=== PATIENT | female | born 1950 | race Caucasian/White ===

== ENCOUNTER 2017-11-05 09:08 | Inpatient (IN) | payer SELFPAY, OTHER ==
[2017-11-05] MEDS ORDERED: ONDANSETRON 4 MG INJ (11:44)
[2017-11-05] MEDS: morphine 10 MG INJ IV ×2 (11:47→13:56)
[2017-11-05 12:02] LABS: ABNORMAL IP MESSAGE 1; HEMOGLOBIN 10.6 g/dl (12.0-16.0); MEAN CORPUSCULAR HEMOGLOBIN 23.2 pg (29.0-33.0); MEAN CORPUSCULAR HGB CONC 31.2 g/dl (32.0-37.0); MEAN CORPUSCULAR VOLUME 74.6 fl (82.0-101.0); MEAN PLATELET VOLUME 9.4 fl (7.4-10.4); PLATELET COUNT 528 10^3/UL (140-415); RED BLOOD COUNT 4.56 10^6/ul (4.20-5.40); RED CELL DISTRIBUTION WIDTH 15.4 % (11.5-14.5)
[2017-11-05 12:02] LABS: WHITE BLOOD COUNT 27.5 10^3/ul (4.8-10.8)
[2017-11-05 12:04] LABS: ADD MAN DIFF? YES; POSITIVE DIFF @See below
[2017-11-05 12:05] LABS: ADD UMIC YES; UR ASCORBIC ACID NEGATIVE (NEGATIVE); UR BILIRUBIN (Dip) NEGATIVE (NEGATIVE); UR BLOOD (Dip) 1+ mg/dL (NEGATIVE); UR CLARITY CLEAR (CLEAR); UR COLOR STRAW (YELLOW); UR GLUCOSE (Dip) NEGATIVE (NEGATIVE); UR KETONES (Dip) NEGATIVE (NEGATIVE); UR LEUKOCYTE ESTERASE (Dip) NEGATIVE Leu/ul (NEGATIVE); UR NITRITE (Dip) NEGATIVE (NEGATIVE); UR RBC 1 /HPF (0-5); UR SPECIFIC GRAVITY (Dip) 1.002 (1.003-1.030); UR TOTAL PROTEIN (Dip) NEGATIVE (NEGATIVE); UR UROBILINOGEN (Dip) NEGATIVE (NEGATIVE); UR WBC 0 /HPF (0-5)
[2017-11-05 12:22] LABS: ALANINE AMINOTRANSFERASE 48 IU/L (13-69); ALBUMIN 3.7 g/dl (3.3-4.9); ALBUMIN/GLOBULIN RATIO 0.72; ALKALINE PHOSPHATASE 392 IU/L (42-121); ANION GAP 21 (8-16); ASPARTATE AMINO TRANSFERASE 43 IU/L (15-46); BILIRUBIN,INDIRECT 0.3 mg/dl (0-1.1); BILIRUBIN,TOTAL 0.3 mg/dl (0.2-1.3); BLOOD UREA NITROGEN 11 mg/dl (7-20); CALCIUM 9.9 mg/dl (8.4-10.2); CARBON DIOXIDE 22 mmol/L (21-31); CHLORIDE 100 mmol/L (97-110); CREATININE 0.67 mg/dl (0.44-1.00); GLUCOSE 91 mg/dl (70-220); LIPASE 67 U/L (23-300); POTASSIUM 3.4 mmol/L (3.5-5.1); SODIUM 140 mmol/L (135-144); TOTAL PROTEIN 8.8 g/dl (6.1-8.1)
[2017-11-05 12:39] LABS: ANISOCYTOSIS 2+ (0-0); BAND NEUTROPHILS #M 1.1 10^3/ul (0.0-0.6); BAND NEUTROPHILS % (M) 4 % (0-4); LYMPHOCYTES #M 2.4 10^3/ul (0.8-2.9); LYMPHOCYTES % (M) 9 % (15-51); METAMYELOCYTES #M 0.2 10^3/ul (0.0-0.0); METAMYELOCYTES %M 1 % (0-0); MICROCYTOSIS 2+ (0-0); MONOCYTE #M 3.5 10^3/ul (0.3-0.9); MONOCYTES % (M) 13 % (0-11); MYELOCYTES #M 0.2 10^3/ul (0.0-0.0); MYELOCYTES % (M) 1 % (0-0); OVALOCYTES 1+ (0-0); PLATELET ESTIMATE INCREASED; POLYCHROMASIA 1+ (0-0); PROMYELOCYTES #M 0.2 10^3/ul (0-0); PROMYELOCYTES % (M) 1 % (0-0); SEG NEUT #M 19.8 10^3/ul (1.6-7.5); SEGMENTED NEUTROPHILS (M) % 71 % (39-77); SMUDGE%M 2 % (0-0)
[2017-11-05 12:41] LABS: PATH REVIEW? YES
[2017-11-05] MEDS: ONDANSETRON 4 MG INJ IV ×2 (12:45→13:55)
[2017-11-05] MEDS: PIPER-TAZO 3.375 GM IV (PMX) 100 ML IVPB (13:48)
[2017-11-05] MEDS: D5W-0.45 NACL + KCL 20 MEQ 1,000 ML IV (13:49)
[2017-11-05] MEDS ORDERED: ONDANSETRON 4 MG INJ IV ×2 (14:00→15:00)
[2017-11-05] MEDS ORDERED: ACETAMINOPHEN 325 MG TAB PO (14:00)
[2017-11-05] MEDS ORDERED: NACL 0.9% 3 ML SYG IV (15:00)
[2017-11-05] MEDS ORDERED: SOD CHLORIDE 0.9% IV (15:00)
[2017-11-05 15:46] LABS: LACTIC ACID 1.1 mmol/L (0.5-2.0)
[2017-11-05] MEDS: VANCOMYCIN 1 GM (PMX) 250 ML IVPB (16:41)
[2017-11-05] MEDS: SOD CHLORIDE 0.9% 1,000 ML IV ×3 (16:42→22:49)
[2017-11-05] MEDS: ACETAMINOPHEN 325 MG TAB PO (16:44)
[2017-11-05] MEDS: PIPER-TAZO 3.375 GM IV (PMX) 50 ML IVPB (17:24)
[2017-11-05] MEDS: FAMOTIDINE 20 MG INJ IV (20:07)
[2017-11-05] MEDS: morphine 2 MG INJ IV ×2 (20:08→22:18)
[2017-11-05] MEDS: IOHEXOL 14.3 MG(I)/ML (ADULT) BTL PO (22:30)
[2017-11-05] MEDS: IOHEXOL 300MG/ML 150 ML BTL (23:33)
[2017-11-05] MEDS: SOD CHLORIDE 0.9% 100 ML (23:33)
[2017-11-06] MEDS: PIPER-TAZO 3.375 GM IV (PMX) 50 ML IVPB ×5 (00:07→23:22)
[2017-11-06] MEDS: POTASSIUM CHLORIDE 100 ML IVPB (01:09)
[2017-11-06] MEDS: morphine 2 MG INJ IV ×2 (01:43→08:33)
[2017-11-06] MEDS: ACETAMINOPHEN 325 MG TAB PO ×3 (02:48→20:38)
[2017-11-06 06:33] LABS: ADD MAN DIFF? NO
[2017-11-06 06:45] LABS: WHITE BLOOD COUNT 23.8 10^3/ul (4.8-10.8)
[2017-11-06 06:45] LABS: ABNORMAL IP MESSAGE 1; BASOPHIL # 0.1 10^3/ul (0.0-0.1); BASOPHILS % 0.2 % (0.0-2.0); EOSINOPHILS # 0.2 10^3/ul (0.0-0.5); EOSINOPHILS % 0.8 % (0.0-7.0); HEMATOCRIT 27.5 % (37.0-47.0); HEMOGLOBIN 8.6 g/dl (12.0-16.0); LYMPHOCYTES # 2.1 10^3/ul (0.8-2.9); LYMPHOCYTES % 8.9 % (15.0-51.0); MEAN CORPUSCULAR HEMOGLOBIN 23.4 pg (29.0-33.0); MEAN CORPUSCULAR HGB CONC 31.3 g/dl (32.0-37.0); MEAN CORPUSCULAR VOLUME 74.7 fl (82.0-101.0); MEAN PLATELET VOLUME 9.3 fl (7.4-10.4); MONOCYTES % 16.6 % (0.0-11.0); NEUTROPHIL # 16.5 10^3/ul (1.6-7.5); NEUTROPHILS % 69.1 % (39.0-77.0); PLATELET COUNT 506 10^3/UL (140-415); RED BLOOD COUNT 3.68 10^6/ul (4.20-5.40); RED CELL DISTRIBUTION WIDTH 15.8 % (11.5-14.5)
[2017-11-06] MEDS: SOD CHLORIDE 0.9% 1,000 ML IV (06:49)
[2017-11-06 06:57] LABS: POSITIVE DIFF @See below
[2017-11-06 07:11] LABS: ALANINE AMINOTRANSFERASE 34 IU/L (13-69); ALBUMIN/GLOBULIN RATIO 0.78; ALKALINE PHOSPHATASE 362 IU/L (42-121); ANION GAP 15 (8-16); ASPARTATE AMINO TRANSFERASE 26 IU/L (15-46); BILIRUBIN,INDIRECT 0.1 mg/dl (0-1.1); BILIRUBIN,TOTAL 0.1 mg/dl (0.2-1.3); BLOOD UREA NITROGEN 9 mg/dl (7-20); CALCIUM 8.4 mg/dl (8.4-10.2); CARBON DIOXIDE 24 mmol/L (21-31); CHLORIDE 104 mmol/L (97-110); CHOL/HDL RATIO 7.9 RATIO; CHOLESTEROL 111 mg/dl (100-200); CREATININE 0.74 mg/dl (0.44-1.00); GLUCOSE 89 mg/dl (70-220); HDL CHOLESTEROL 14 mg/dl (35-98); LDL CHOLESTEROL,CALCULATED 65 mg/dl; MAGNESIUM 1.8 mg/dl (1.7-2.5); PHOSPHORUS 3.4 mg/dl (2.5-4.9); SODIUM 140 mmol/L (135-144); TOTAL PROTEIN 6.8 g/dl (6.1-8.1); TRIGLYCERIDES 161 mg/dl (0-149)
[2017-11-06 07:21] LABS: POTASSIUM 2.9 mmol/L (3.5-5.1)
[2017-11-06] MEDS: POTASSIUM CHLORIDE (SR) 20 MEQ TAB PO ×2 (08:38→11:43)
[2017-11-06] MEDS: FAMOTIDINE 20 MG INJ IV ×2 (08:39→20:38)
[2017-11-06] MEDS ORDERED: VANCOMYCIN IV PER PHARMACY XX (09:00)
[2017-11-06] MEDS: POTASSIUM CHLORIDE 20 MEQ in SOD CHLORIDE 0.9% 1,000 ML IV ×3 (09:42→18:09)
[2017-11-06 12:14] LABS: IRON 19 ug/dl (35-150)
[2017-11-06 12:23] LABS: % IRON SATURATION 8 % SAT (22-52)
[2017-11-06 12:24] LABS: TOTAL IRON BINDING CAPACITY 224 ug/dl (241-421)
[2017-11-06] MEDS: VANCOMYCIN 750 MG in DEXTROSE 5% 150 ML IVPB ×2 (12:42→23:59)
[2017-11-06] MEDS: HYDROmorphONE 0.5 MG/0.5 ML SYG IV ×3 (12:42→22:06)
[2017-11-06] MEDS: SOD CHLORIDE 0.9% 500 ML IV (15:26)
[2017-11-07] MEDS: HYDROmorphONE 0.5 MG/0.5 ML SYG IV ×6 (02:13→23:37)
[2017-11-07] MEDS: POTASSIUM CHLORIDE 20 MEQ in SOD CHLORIDE 0.9% 1,000 ML IV ×3 (04:34→17:43)
[2017-11-07] MEDS: PIPER-TAZO 3.375 GM IV (PMX) 50 ML IVPB ×3 (05:29→17:42)
[2017-11-07 07:15] LABS: ABNORMAL IP MESSAGE 1; HEMATOCRIT 29.5 % (37.0-47.0); MEAN CORPUSCULAR HEMOGLOBIN 23.1 pg (29.0-33.0); MEAN CORPUSCULAR HGB CONC 30.5 g/dl (32.0-37.0); MEAN CORPUSCULAR VOLUME 75.6 fl (82.0-101.0); MEAN PLATELET VOLUME 9.4 fl (7.4-10.4); PLATELET COUNT 555 10^3/UL (140-415); RED CELL DISTRIBUTION WIDTH 15.9 % (11.5-14.5)
[2017-11-07 07:15] LABS: WHITE BLOOD COUNT 29.1 10^3/ul (4.8-10.8)
[2017-11-07 07:19] LABS: ADD MAN DIFF? YES; POSITIVE DIFF @See below
[2017-11-07 07:52] LABS: ANION GAP 16 (8-16); BLOOD UREA NITROGEN 7 mg/dl (7-20); CALCIUM 8.7 mg/dl (8.4-10.2); CARBON DIOXIDE 22 mmol/L (21-31); CHLORIDE 104 mmol/L (97-110); CREATININE 0.65 mg/dl (0.44-1.00); GLUCOSE 68 mg/dl (70-220); POTASSIUM 3.8 mmol/L (3.5-5.1); SODIUM 138 mmol/L (135-144)
[2017-11-07 08:53] LABS: ANISOCYTOSIS 2+ (0-0); BAND NEUTROPHILS #M 0.5 10^3/ul (0.0-0.6); BAND NEUTROPHILS % (M) 2 % (0-4); LYMPHOCYTES #M 0.5 10^3/ul (0.8-2.9); LYMPHOCYTES % (M) 2 % (15-51); MICROCYTOSIS 2+ (0-0); MONOCYTE #M 2.3 10^3/ul (0.3-0.9); MONOCYTES % (M) 8 % (0-11); MYELOCYTES #M 0.5 10^3/ul (0.0-0.0); MYELOCYTES % (M) 2 % (0-0); PLATELET ESTIMATE INCREASED; POIKILOCYTOSIS 2+ (0-0); POLYCHROMASIA 3+ (0-0); REACTIVE LYMPHOCYTES #M 0.8 10^3/ul (0.0-0.0); REACTIVE LYMPHOCYTES% (M) 3 % (0-0); SEG NEUT #M 24.3 10^3/ul (1.6-7.5); SEGMENTED NEUTROPHILS (M) % 83 % (39-77); SMUDGE%M 4 % (0-0)
[2017-11-07] MEDS: FAMOTIDINE 20 MG INJ IV ×2 (09:22→20:23)
[2017-11-07 10:51] LABS: PROTIME 17.4 Sec (11.9-14.9); PT RATIO 1.4
[2017-11-07 10:56] LABS: VANCOMYCIN,TROUGH < 5.0 ug/ml (10.0-20.0)
[2017-11-07] MEDS: VANCOMYCIN 750 MG in DEXTROSE 5% 150 ML IVPB ×2 (12:16→20:23)
[2017-11-07] MEDS: LIDOCAINE 1% (MDV) 10 ML INJ (12:56)
[2017-11-07] MEDS: DIPHENHYDRAMINE 50 MG INJ (13:01)
[2017-11-07] MEDS: FENTAnyl 50 MCG/ML VIAL (13:01)
[2017-11-07] MEDS: FLUCONAZOLE 100 MG/NS (PMX) 50 ML IVPB (14:45)
[2017-11-07] MEDS: ALPRAZOLAM 0.5 MG TAB PO (15:53)
[2017-11-08] MEDS: PIPER-TAZO 3.375 GM IV (PMX) 50 ML IVPB ×4 (00:26→17:53)
[2017-11-08] MEDS: HYDROmorphONE 0.5 MG/0.5 ML SYG IV ×5 (03:39→20:26)
[2017-11-08] MEDS: POTASSIUM CHLORIDE 20 MEQ in SOD CHLORIDE 0.9% 1,000 ML IV ×3 (03:40→20:24)
[2017-11-08] MEDS: VANCOMYCIN 750 MG in DEXTROSE 5% 150 ML IVPB ×3 (04:06→21:57)
[2017-11-08] MEDS: GUAIFENESIN/DM 5ML CUP PO ×5 (04:06→21:58)
[2017-11-08 06:02] LABS: ADD MAN DIFF? NO
[2017-11-08 06:08] LABS: WHITE BLOOD COUNT 19.5 10^3/ul (4.8-10.8)
[2017-11-08 06:08] LABS: ABNORMAL IP MESSAGE 1; BASOPHIL # 0.1 10^3/ul (0.0-0.1); BASOPHILS % 0.5 % (0.0-2.0); EOSINOPHILS # 0.3 10^3/ul (0.0-0.5); EOSINOPHILS % 1.3 % (0.0-7.0); HEMATOCRIT 29.5 % (37.0-47.0); HEMOGLOBIN 9.2 g/dl (12.0-16.0); LYMPHOCYTES # 1.6 10^3/ul (0.8-2.9); MEAN CORPUSCULAR HEMOGLOBIN 23.7 pg (29.0-33.0); MEAN CORPUSCULAR HGB CONC 31.2 g/dl (32.0-37.0); MEAN CORPUSCULAR VOLUME 75.8 fl (82.0-101.0); MEAN PLATELET VOLUME 9.3 fl (7.4-10.4); MONOCYTE # 2.4 10^3/ul (0.3-0.9); MONOCYTES % 12.2 % (0.0-11.0); NEUTROPHIL # 14.4 10^3/ul (1.6-7.5); NEUTROPHILS % 73.9 % (39.0-77.0); PLATELET COUNT 517 10^3/UL (140-415); RED BLOOD COUNT 3.89 10^6/ul (4.20-5.40); RED CELL DISTRIBUTION WIDTH 15.8 % (11.5-14.5)
[2017-11-08 06:48] LABS: POSITIVE DIFF @See below
[2017-11-08 06:56] LABS: ANION GAP 14 (8-16); BLOOD UREA NITROGEN 8 mg/dl (7-20); CALCIUM 8.4 mg/dl (8.4-10.2); CARBON DIOXIDE 25 mmol/L (21-31); CHLORIDE 105 mmol/L (97-110); CREATININE 0.54 mg/dl (0.44-1.00); GLUCOSE 127 mg/dl (70-220); MAGNESIUM 2.1 mg/dl (1.7-2.5); POTASSIUM 3.5 mmol/L (3.5-5.1); SODIUM 140 mmol/L (135-144)
[2017-11-08] MEDS: FAMOTIDINE 20 MG INJ IV ×2 (08:00→20:25)
[2017-11-08] MEDS: FLUCONAZOLE 100 MG/NS (PMX) 50 ML IVPB (16:25)
[2017-11-08] MEDS: ALPRAZOLAM 0.5 MG TAB PO (18:57)
[2017-11-08] MEDS: LACTOBACILLUS RHAMNOSUS CAP PO (20:25)
[2017-11-08 20:58] LABS: VANCOMYCIN,TROUGH 9.3 ug/ml (10.0-20.0)
[2017-11-08] MEDS: HYDROmorphONE 2 MG TAB PO (21:59)
[2017-11-09] MEDS: PIPER-TAZO 3.375 GM IV (PMX) 50 ML IVPB ×4 (00:28→17:35)
[2017-11-09] MEDS: HYDROmorphONE 0.5 MG/0.5 ML SYG IV ×6 (00:29→21:38)
[2017-11-09] MEDS: GUAIFENESIN/DM 5ML CUP PO ×4 (02:07→16:08)
[2017-11-09] MEDS: HYDROmorphONE 2 MG TAB PO ×5 (02:07→20:17)
[2017-11-09 05:34] LABS: WHITE BLOOD COUNT 12.5 10^3/ul (4.8-10.8)
[2017-11-09 05:34] LABS: ABNORMAL IP MESSAGE 1; HEMATOCRIT 29.4 % (37.0-47.0); HEMOGLOBIN 9.2 g/dl (12.0-16.0); MEAN CORPUSCULAR HEMOGLOBIN 23.4 pg (29.0-33.0); MEAN CORPUSCULAR HGB CONC 31.3 g/dl (32.0-37.0); MEAN CORPUSCULAR VOLUME 74.6 fl (82.0-101.0); MEAN PLATELET VOLUME 9.1 fl (7.4-10.4); PLATELET COUNT 520 10^3/UL (140-415); RED BLOOD COUNT 3.94 10^6/ul (4.20-5.40); RED CELL DISTRIBUTION WIDTH 15.7 % (11.5-14.5)
[2017-11-09 05:46] LABS: POSITIVE DIFF @See below
[2017-11-09 05:47] LABS: ADD MAN DIFF? YES
[2017-11-09 06:05] LABS: ALANINE AMINOTRANSFERASE 45 IU/L (13-69); ALBUMIN 2.9 g/dl (3.3-4.9); ALKALINE PHOSPHATASE 284 IU/L (42-121); ANION GAP 15 (8-16); ASPARTATE AMINO TRANSFERASE 40 IU/L (15-46); BILIRUBIN,INDIRECT 0.1 mg/dl (0-1.1); BILIRUBIN,TOTAL 0.1 mg/dl (0.2-1.3); BLOOD UREA NITROGEN 8 mg/dl (7-20); CALCIUM 8.4 mg/dl (8.4-10.2); CARBON DIOXIDE 26 mmol/L (21-31); CHLORIDE 106 mmol/L (97-110); CREATININE 0.55 mg/dl (0.44-1.00); GLUCOSE 96 mg/dl (70-220); PHOSPHORUS 2.7 mg/dl (2.5-4.9); POTASSIUM 3.6 mmol/L (3.5-5.1); SODIUM 143 mmol/L (135-144)
[2017-11-09 06:23] LABS: ANISOCYTOSIS 2+ (0-0); BAND NEUTROPHILS #M 0.7 10^3/ul (0.0-0.6); BAND NEUTROPHILS % (M) 6 % (0-4); EOSINOPHILS % (M) 2 % (0-7); GIANT THROMBO% (M) 1 % (0-0); LYMPHOCYTES #M 1.6 10^3/ul (0.8-2.9); LYMPHOCYTES % (M) 13 % (15-51); METAMYELOCYTES #M 0.2 10^3/ul (0.0-0.0); METAMYELOCYTES %M 2 % (0-0); MICROCYTOSIS 2+ (0-0); MONOCYTE #M 0.6 10^3/ul (0.3-0.9); MONOCYTES % (M) 5 % (0-11); PLATELET ESTIMATE INCREASED; POIKILOCYTOSIS 1+ (0-0); POLYCHROMASIA 3+ (0-0); SEG NEUT #M 9.1 10^3/ul (1.6-7.5); SEGMENTED NEUTROPHILS (M) % 72 % (39-77); SMUDGE%M 1 % (0-0)
[2017-11-09] MEDS: VANCOMYCIN 1 GM 250 ML IVPB ×3 (06:57→23:01)
[2017-11-09] MEDS: FAMOTIDINE 20 MG INJ IV ×2 (08:09→20:17)
[2017-11-09] MEDS: LACTOBACILLUS RHAMNOSUS CAP PO ×2 (08:09→20:16)
[2017-11-09] MEDS: POTASSIUM CHLORIDE 20 MEQ in SOD CHLORIDE 0.9% 1,000 ML IV (09:50)
[2017-11-09] MEDS: FLUCONAZOLE 100 MG/NS (PMX) 50 ML IVPB (13:18)
[2017-11-09] MEDS: AMLODIPINE 2.5 MG TAB PO (16:06)
[2017-11-09] MEDS: SENNA/DOCUSATE NA (8.6MG/50MG) TAB PO (20:16)
[2017-11-10] MEDS: PIPER-TAZO 3.375 GM IV (PMX) 50 ML IVPB ×4 (01:04→18:35)
[2017-11-10] MEDS: HYDROmorphONE 0.5 MG/0.5 ML SYG IV ×6 (01:41→22:10)
[2017-11-10 05:31] LABS: ADD MAN DIFF? NO
[2017-11-10 05:35] LABS: WHITE BLOOD COUNT 11.4 10^3/ul (4.8-10.8)
[2017-11-10 05:35] LABS: BASOPHIL # 0.1 10^3/ul (0.0-0.1); BASOPHILS % 0.8 % (0.0-2.0); EOSINOPHILS # 0.4 10^3/ul (0.0-0.5); EOSINOPHILS % 3.7 % (0.0-7.0); HEMATOCRIT 30.2 % (37.0-47.0); HEMOGLOBIN 9.4 g/dl (12.0-16.0); LYMPHOCYTES # 1.9 10^3/ul (0.8-2.9); LYMPHOCYTES % 16.7 % (15.0-51.0); MEAN CORPUSCULAR HEMOGLOBIN 23.4 pg (29.0-33.0); MEAN CORPUSCULAR HGB CONC 31.1 g/dl (32.0-37.0); MEAN CORPUSCULAR VOLUME 75.1 fl (82.0-101.0); MEAN PLATELET VOLUME 8.9 fl (7.4-10.4); MONOCYTE # 1.4 10^3/ul (0.3-0.9); MONOCYTES % 12.4 % (0.0-11.0); NEUTROPHILS % 61.8 % (39.0-77.0); PLATELET COUNT 591 10^3/UL (140-415); RED BLOOD COUNT 4.02 10^6/ul (4.20-5.40); RED CELL DISTRIBUTION WIDTH 15.5 % (11.5-14.5)
[2017-11-10 05:58] LABS: ALANINE AMINOTRANSFERASE 38 IU/L (13-69); ALBUMIN 3.3 g/dl (3.3-4.9); ALKALINE PHOSPHATASE 260 IU/L (42-121); ANION GAP 15 (8-16); ASPARTATE AMINO TRANSFERASE 30 IU/L (15-46); BLOOD UREA NITROGEN 7 mg/dl (7-20); CALCIUM 8.8 mg/dl (8.4-10.2); CARBON DIOXIDE 28 mmol/L (21-31); CHLORIDE 103 mmol/L (97-110); CREATININE 0.48 mg/dl (0.44-1.00); GLUCOSE 95 mg/dl (70-220); PHOSPHORUS 3.1 mg/dl (2.5-4.9); POTASSIUM 3.7 mmol/L (3.5-5.1); SODIUM 142 mmol/L (135-144); TOTAL PROTEIN 7.4 g/dl (6.1-8.1)
[2017-11-10 06:13] LABS: FREE T4 (FREE THYROXINE) 1.23 ng/dl (0.78-2.44)
[2017-11-10 06:28] LABS: TRIIODOTHYRONINE 1.02 ng/ml (0.97-1.69)
[2017-11-10] MEDS: VANCOMYCIN 1 GM 250 ML IVPB ×2 (06:31→16:01)
[2017-11-10] MEDS: FAMOTIDINE 20 MG INJ IV ×2 (08:15→20:16)
[2017-11-10] MEDS: LACTOBACILLUS RHAMNOSUS CAP PO ×2 (08:15→20:16)
[2017-11-10] MEDS: AMLODIPINE 2.5 MG TAB PO (08:15)
[2017-11-10 11:02] LABS: URIC ACID 2.9 mg/dl (3.1-7.9)
[2017-11-10 11:02] LABS: LACTATE DEHYDROGENASE 435 IU/L (313-618)
[2017-11-10] MEDS: HYDROmorphONE 2 MG TAB PO ×3 (12:03→20:17)
[2017-11-10] MEDS: FLUCONAZOLE 100 MG/NS (PMX) 50 ML IVPB (13:48)
[2017-11-10 14:13] LABS: IMMUNOGLOBULIN A 206 mg/dl (70-400); IMMUNOGLOBULIN G 1611 mg/dl (700-1600)
[2017-11-10 15:38] LABS: VANCOMYCIN,TROUGH 10.9 ug/ml (10.0-20.0)
[2017-11-10 15:42] LABS: IMMUNOGLOBULIN M 508 mg/dl (40-230)
[2017-11-10] MEDS: SENNA/DOCUSATE NA (8.6MG/50MG) TAB PO (20:16)
[2017-11-10] MEDS: VANCOMYCIN 1.25 GM in SOD CHLORIDE 0.9% 250 ML IVPB (22:38)
[2017-11-11] MEDS: PIPER-TAZO 3.375 GM IV (PMX) 50 ML IVPB ×6 (01:43→23:15)
[2017-11-11] MEDS: HYDROmorphONE 0.5 MG/0.5 ML SYG IV ×5 (02:13→19:39)
[2017-11-11] MEDS: VANCOMYCIN 1.25 GM in SOD CHLORIDE 0.9% 250 ML IVPB ×3 (06:34→23:57)
[2017-11-11] MEDS: AMLODIPINE 2.5 MG TAB PO (08:18)
[2017-11-11] MEDS: LACTOBACILLUS RHAMNOSUS CAP PO ×2 (08:18→20:14)
[2017-11-11] MEDS: HYDROmorphONE 2 MG TAB PO ×2 (08:18→12:21)
[2017-11-11] MEDS: FAMOTIDINE 20 MG INJ IV ×2 (08:18→20:14)
[2017-11-11] MEDS: FLUCONAZOLE 100 MG/NS (PMX) 50 ML IVPB (13:58)
[2017-11-11 16:31] LABS: ALBUMIN 2.6 g/dL (3.8-4.8); ALPHA-1-GLOBULINS 0.6 g/dL (0.2-0.3); ALPHA-2-GLOBULINS 1.1 g/dL (0.5-0.9); BETA 2 GLOBULINS 0.4 g/dL (0.2-0.5); BETA GLOBULINS 0.4 g/dL (0.4-0.6); GAMMA GLOBULINS 1.9 g/dL (0.8-1.7)
[2017-11-11 17:17] LABS: BETA-2 MICROGLOBULIN 3.27 mg/L (< OR = 2.51)
[2017-11-11] MEDS: SENNA/DOCUSATE NA (8.6MG/50MG) TAB PO (20:15)
[2017-11-11] MEDS: MICONAZOLE 2% 30 GM CR TOP (21:35)
[2017-11-11] MEDS: ALPRAZOLAM 0.5 MG TAB PO (21:35)
[2017-11-12] MEDS: PIPER-TAZO 3.375 GM IV (PMX) 50 ML IVPB ×3 (05:43→17:05)
[2017-11-12] MEDS: HYDROmorphONE 0.5 MG/0.5 ML SYG IV ×6 (05:47→22:09)
[2017-11-12 06:32] LABS: VANCOMYCIN,TROUGH 20.7 ug/ml (10.0-20.0)
[2017-11-12] MEDS: LACTOBACILLUS RHAMNOSUS CAP PO ×2 (08:46→20:28)
[2017-11-12] MEDS: AMLODIPINE 2.5 MG TAB PO (08:46)
[2017-11-12] MEDS: FAMOTIDINE 20 MG INJ IV ×2 (08:46→20:28)
[2017-11-12] MEDS: MICONAZOLE 2% 30 GM CR TOP ×2 (08:54→20:38)
[2017-11-12] MEDS: VANCOMYCIN 1 GM 250 ML IVPB ×2 (11:49→18:19)
[2017-11-12] MEDS ORDERED: VANCOMYCIN 1.25 GM in SOD CHLORIDE 0.9% 250 ML IVPB (12:00)
[2017-11-12] MEDS: FLUCONAZOLE 100 MG/NS (PMX) 50 ML IVPB (15:02)
[2017-11-12] MEDS: ALPRAZOLAM 0.5 MG TAB PO (20:29)
[2017-11-12] MEDS: HYDROmorphONE 2 MG TAB PO (20:29)
[2017-11-12] MEDS: SENNA/DOCUSATE NA (8.6MG/50MG) TAB PO (20:34)
[2017-11-13] MEDS: PIPER-TAZO 3.375 GM IV (PMX) 50 ML IVPB ×4 (00:30→18:34)
[2017-11-13] MEDS: HYDROmorphONE 0.5 MG/0.5 ML SYG IV ×6 (02:32→23:06)
[2017-11-13] MEDS: VANCOMYCIN 1 GM 250 ML IVPB (03:06)
[2017-11-13 05:53] LABS: ADD MAN DIFF? NO
[2017-11-13 05:57] LABS: WHITE BLOOD COUNT 11.8 10^3/ul (4.8-10.8)
[2017-11-13 05:57] LABS: ABNORMAL IP MESSAGE 1; BASOPHIL # 0.1 10^3/ul (0.0-0.1); EOSINOPHILS # 0.4 10^3/ul (0.0-0.5); EOSINOPHILS % 3.5 % (0.0-7.0); HEMATOCRIT 33.9 % (37.0-47.0); HEMOGLOBIN 10.3 g/dl (12.0-16.0); LYMPHOCYTES # 2.6 10^3/ul (0.8-2.9); LYMPHOCYTES % 21.8 % (15.0-51.0); MEAN CORPUSCULAR HEMOGLOBIN 23.1 pg (29.0-33.0); MEAN CORPUSCULAR HGB CONC 30.4 g/dl (32.0-37.0); MEAN PLATELET VOLUME 8.9 fl (7.4-10.4); MONOCYTE # 1.8 10^3/ul (0.3-0.9); NEUTROPHIL # 6.5 10^3/ul (1.6-7.5); NEUTROPHILS % 55.2 % (39.0-77.0); PLATELET COUNT 609 10^3/UL (140-415); RED BLOOD COUNT 4.46 10^6/ul (4.20-5.40); RED CELL DISTRIBUTION WIDTH 16.1 % (11.5-14.5)
[2017-11-13 06:14] LABS: MONOCYTES % 14.9 % (0.0-11.0); POSITIVE DIFF @See below
[2017-11-13 06:33] LABS: ALANINE AMINOTRANSFERASE 34 IU/L (13-69); ALBUMIN 3.9 g/dl (3.3-4.9); ALBUMIN/GLOBULIN RATIO 0.84; ALKALINE PHOSPHATASE 236 IU/L (42-121); ANION GAP 15 (8-16); ASPARTATE AMINO TRANSFERASE 26 IU/L (15-46); BILIRUBIN,INDIRECT 0.1 mg/dl (0-1.1); BILIRUBIN,TOTAL 0.1 mg/dl (0.2-1.3); BLOOD UREA NITROGEN 11 mg/dl (7-20); CALCIUM 9.6 mg/dl (8.4-10.2); CARBON DIOXIDE 28 mmol/L (21-31); CHLORIDE 103 mmol/L (97-110); CREATININE 0.66 mg/dl (0.44-1.00); GLUCOSE 98 mg/dl (70-220); POTASSIUM 4.1 mmol/L (3.5-5.1); SODIUM 142 mmol/L (135-144); TOTAL PROTEIN 8.5 g/dl (6.1-8.1)
[2017-11-13] MEDS: FAMOTIDINE 20 MG INJ IV ×2 (08:41→20:41)
[2017-11-13] MEDS: LACTOBACILLUS RHAMNOSUS CAP PO ×2 (08:41→20:41)
[2017-11-13] MEDS: MICONAZOLE 2% 30 GM CR TOP ×2 (08:41→20:41)
[2017-11-13] MEDS: AMLODIPINE 2.5 MG TAB PO (08:41)
[2017-11-13] MEDS: HYDROmorphONE 2 MG TAB PO ×3 (12:07→20:42)
[2017-11-13] MEDS: SENNA/DOCUSATE NA (8.6MG/50MG) TAB PO (20:41)
[2017-11-13] MEDS: ALPRAZOLAM 0.5 MG TAB PO (23:06)
[2017-11-14] MEDS: PIPER-TAZO 3.375 GM IV (PMX) 50 ML IVPB ×5 (00:48→23:37)
[2017-11-14] MEDS: HYDROmorphONE 0.5 MG/0.5 ML SYG IV ×5 (03:13→20:40)
[2017-11-14] MEDS: FAMOTIDINE 20 MG INJ IV ×2 (08:21→20:40)
[2017-11-14] MEDS: MICONAZOLE 2% 30 GM CR TOP ×2 (08:21→20:40)
[2017-11-14] MEDS: AMLODIPINE 2.5 MG TAB PO (08:21)
[2017-11-14] MEDS: LACTOBACILLUS RHAMNOSUS CAP PO ×2 (08:21→20:40)
[2017-11-14] MEDS: SENNA/DOCUSATE NA (8.6MG/50MG) TAB PO (20:40)
[2017-11-14] MEDS: ALPRAZOLAM 0.5 MG TAB PO (23:37)
[2017-11-15] MEDS: HYDROmorphONE 0.5 MG/0.5 ML SYG IV ×6 (01:06→21:58)
[2017-11-15 05:16] LABS: ABNORMAL IP MESSAGE 1; HEMATOCRIT 33.8 % (37.0-47.0); HEMOGLOBIN 10.3 g/dl (12.0-16.0); MEAN CORPUSCULAR HEMOGLOBIN 23.1 pg (29.0-33.0); MEAN CORPUSCULAR HGB CONC 30.5 g/dl (32.0-37.0); PLATELET COUNT 534 10^3/UL (140-415); RED BLOOD COUNT 4.45 10^6/ul (4.20-5.40); RED CELL DISTRIBUTION WIDTH 16.6 % (11.5-14.5)
[2017-11-15 05:16] LABS: WHITE BLOOD COUNT 9.4 10^3/ul (4.8-10.8)
[2017-11-15 05:20] LABS: POSITIVE DIFF @See below
[2017-11-15 05:21] LABS: ADD MAN DIFF? YES
[2017-11-15] MEDS: PIPER-TAZO 3.375 GM IV (PMX) 50 ML IVPB ×4 (05:37→23:33)
[2017-11-15 07:50] LABS: ANISOCYTOSIS 2+ (0-0); BAND NEUTROPHILS #M 0.3 10^3/ul (0.0-0.6); BAND NEUTROPHILS % (M) 4 % (0-4); EOSINOPHILS % (M) 4 % (0-7); GIANT THROMBO% (M) 2 % (0-0); LYMPHOCYTES #M 3.1 10^3/ul (0.8-2.9); LYMPHOCYTES % (M) 34 % (15-51); METAMYELOCYTES %M 1 % (0-0); MICROCYTOSIS 2+ (0-0); MONOCYTE #M 1.2 10^3/ul (0.3-0.9); MONOCYTES % (M) 13 % (0-11); PLATELET ESTIMATE INCREASED; SEG NEUT #M 4.2 10^3/ul (1.6-7.5); SEGMENTED NEUTROPHILS (M) % 44 % (39-77); SMUDGE%M 19 % (0-0)
[2017-11-15] MEDS: LACTOBACILLUS RHAMNOSUS CAP PO ×2 (08:36→21:56)
[2017-11-15] MEDS: AMLODIPINE 2.5 MG TAB PO (08:37)
[2017-11-15] MEDS: FAMOTIDINE 20 MG INJ IV ×2 (08:37→21:56)
[2017-11-15] MEDS: MICONAZOLE 2% 30 GM CR TOP ×2 (08:37→21:56)
[2017-11-15] MEDS: BARIUM SULF 2% 450 ML BTL (BERRY SMOOTHIE) PO (17:48)
[2017-11-15] MEDS: SOD CHLORIDE 0.9% 100 ML (21:40)
[2017-11-15] MEDS: SENNA/DOCUSATE NA (8.6MG/50MG) TAB PO (21:56)
[2017-11-15] MEDS: IOHEXOL 300MG/ML 150 ML BTL (22:10)
[2017-11-15] MEDS: ALPRAZOLAM 0.5 MG TAB PO (23:25)
[2017-11-16] MEDS: HYDROmorphONE 0.5 MG/0.5 ML SYG IV ×6 (02:12→21:56)
[2017-11-16] MEDS: PIPER-TAZO 3.375 GM IV (PMX) 50 ML IVPB ×3 (06:02→17:55)
[2017-11-16] MEDS: MICONAZOLE 2% 30 GM CR TOP ×2 (08:51→20:32)
[2017-11-16] MEDS: AMLODIPINE 2.5 MG TAB PO (08:51)
[2017-11-16] MEDS: LACTOBACILLUS RHAMNOSUS CAP PO ×2 (08:51→20:33)
[2017-11-16] MEDS: FAMOTIDINE 20 MG INJ IV ×2 (08:51→20:33)
[2017-11-16] MEDS: SENNA/DOCUSATE NA (8.6MG/50MG) TAB PO (20:33)
[2017-11-17] MEDS: PIPER-TAZO 3.375 GM IV (PMX) 50 ML IVPB ×6 (00:03→23:55)
[2017-11-17] MEDS: HYDROmorphONE 0.5 MG/0.5 ML SYG IV ×6 (02:15→23:12)
[2017-11-17] MEDS: AMLODIPINE 2.5 MG TAB PO (08:47)
[2017-11-17] MEDS: LACTOBACILLUS RHAMNOSUS CAP PO ×2 (08:47→20:55)
[2017-11-17] MEDS: FAMOTIDINE 20 MG INJ IV ×2 (09:05→20:55)
[2017-11-17] MEDS: MICONAZOLE 2% 30 GM CR TOP ×2 (09:05→20:55)
[2017-11-17] MEDS: SENNA/DOCUSATE NA (8.6MG/50MG) TAB PO (20:55)
[2017-11-18] MEDS: HYDROmorphONE 0.5 MG/0.5 ML SYG IV ×5 (03:38→23:56)
[2017-11-18] MEDS: PIPER-TAZO 3.375 GM IV (PMX) 50 ML IVPB ×4 (05:45→23:52)
[2017-11-18] MEDS: LACTOBACILLUS RHAMNOSUS CAP PO ×2 (08:13→21:19)
[2017-11-18] MEDS: MICONAZOLE 2% 30 GM CR TOP ×2 (08:13→21:19)
[2017-11-18] MEDS: FAMOTIDINE 20 MG INJ IV ×2 (08:13→21:17)
[2017-11-18] MEDS: AMLODIPINE 2.5 MG TAB PO (08:14)
[2017-11-18] MEDS: SENNA/DOCUSATE NA (8.6MG/50MG) TAB PO (21:19)
[2017-11-18 21:21] LABS: ALANINE AMINOTRANSFERASE 30 IU/L (13-69); ALBUMIN 4.2 g/dl (3.3-4.9); ALBUMIN/GLOBULIN RATIO 0.82; ALKALINE PHOSPHATASE 222 IU/L (42-121); ANION GAP 16 (8-16); ASPARTATE AMINO TRANSFERASE 26 IU/L (15-46); BLOOD UREA NITROGEN 15 mg/dl (7-20); CALCIUM 9.9 mg/dl (8.4-10.2); CARBON DIOXIDE 26 mmol/L (21-31); CHLORIDE 102 mmol/L (97-110); CREATININE 0.74 mg/dl (0.44-1.00); GLUCOSE 133 mg/dl (70-220); POTASSIUM 4.2 mmol/L (3.5-5.1); SODIUM 140 mmol/L (135-144); TOTAL PROTEIN 9.3 g/dl (6.1-8.1)
[2017-11-18] MEDS: ALPRAZOLAM 0.5 MG TAB PO (22:06)
[2017-11-19] MEDS: PIPER-TAZO 3.375 GM IV (PMX) 50 ML IVPB ×4 (05:55→23:27)
[2017-11-19] MEDS: HYDROmorphONE 0.5 MG/0.5 ML SYG IV ×4 (05:55→23:30)
[2017-11-19] MEDS: MICONAZOLE 2% 30 GM CR TOP ×2 (08:48→21:54)
[2017-11-19] MEDS: LACTOBACILLUS RHAMNOSUS CAP PO ×2 (08:48→21:56)
[2017-11-19] MEDS: AMLODIPINE 2.5 MG TAB PO (08:48)
[2017-11-19] MEDS: FAMOTIDINE 20 MG INJ IV ×2 (08:48→21:56)
[2017-11-19] MEDS: ALPRAZOLAM 0.5 MG TAB PO ×2 (10:08→22:03)
[2017-11-19 14:46] LABS: ADD MAN DIFF? NO
[2017-11-19 14:53] LABS: WHITE BLOOD COUNT 8.8 10^3/ul (4.8-10.8)
[2017-11-19 14:53] LABS: BASOPHIL # 0.1 10^3/ul (0.0-0.1); EOSINOPHILS # 0.4 10^3/ul (0.0-0.5); EOSINOPHILS % 4.3 % (0.0-7.0); HEMATOCRIT 35.3 % (37.0-47.0); HEMOGLOBIN 10.9 g/dl (12.0-16.0); LYMPHOCYTES # 1.9 10^3/ul (0.8-2.9); LYMPHOCYTES % 21.7 % (15.0-51.0); MEAN CORPUSCULAR HEMOGLOBIN 23.6 pg (29.0-33.0); MEAN CORPUSCULAR HGB CONC 30.9 g/dl (32.0-37.0); MEAN CORPUSCULAR VOLUME 76.6 fl (82.0-101.0); MEAN PLATELET VOLUME 9.7 fl (7.4-10.4); MONOCYTE # 1.4 10^3/ul (0.3-0.9); MONOCYTES % 15.4 % (0.0-11.0); NEUTROPHILS % 56.9 % (39.0-77.0); PLATELET COUNT 437 10^3/UL (140-415); RED BLOOD COUNT 4.61 10^6/ul (4.20-5.40); RED CELL DISTRIBUTION WIDTH 16.9 % (11.5-14.5)
[2017-11-19] MEDS: SENNA/DOCUSATE NA (8.6MG/50MG) TAB PO (21:56)
[2017-11-20] MEDS: PIPER-TAZO 3.375 GM IV (PMX) 50 ML IVPB ×2 (05:41→11:13)
[2017-11-20] MEDS: HYDROmorphONE 0.5 MG/0.5 ML SYG IV ×2 (05:42→11:42)
[2017-11-20] MEDS: MICONAZOLE 2% 30 GM CR TOP (09:25)
[2017-11-20] MEDS: LACTOBACILLUS RHAMNOSUS CAP PO (09:25)
[2017-11-20] MEDS: AMLODIPINE 2.5 MG TAB PO (09:25)
[2017-11-20] MEDS: FAMOTIDINE 20 MG INJ IV (09:26)
[2017-11-20] MEDS: ALPRAZOLAM 0.5 MG TAB PO (10:04)
[2017-11-20] MEDS: ACETAMINOPHEN 325 MG TAB PO (12:54)
== END 2017-11-20 15:00 | disposition home or self-care (01) | DRG 872 ==
LOC: E/R 09:08 → PP2 13:47
PROC: 0W9F30Z Drainage of Abdominal Wall with Drainage Device, Percutaneous Approach (ICD-10-PCS; principal; 2017-11-07)
DX: A41.9 Sepsis, unspecified organism (principal); L03.311 Cellulitis of abdominal wall; K57.92 Diverticulitis of intestine, part unspecified, without perforation or abscess without bleeding; N39.0 Urinary tract infection, site not specified; K52.9 Noninfective gastroenteritis and colitis, unspecified; D64.89 Other specified anemias; D47.3 Essential (hemorrhagic) thrombocythemia; E86.0 Dehydration; E87.6 Hypokalemia; K76.0 Fatty (change of) liver, not elsewhere classified; F41.9 Anxiety disorder, unspecified; R91.8 Other nonspecific abnormal finding of lung field; R59.1 Generalized enlarged lymph nodes; R16.2 Hepatomegaly with splenomegaly, not elsewhere classified; B96.1 Klebsiella pneumoniae [K. pneumoniae] as the cause of diseases classified elsewhere; B96.89 Other specified bacterial agents as the cause of diseases classified elsewhere; D50.9 Iron deficiency anemia, unspecified; Z80.1 Family history of malignant neoplasm of trachea, bronchus and lung; I80.8 Phlebitis and thrombophlebitis of other sites; L08.9 Local infection of the skin and subcutaneous tissue, unspecified
CPT/HCPCS: 36415; 71250; 73221; 74176; 74177; 74178; 76536; 77012; 80048; 80053; 80061; 80202; 81001; 81270; 82164; 82784; 82787; 83036; 83540; 83605; 83615; 83690; 83735; 84100; 84155; 84165; 84439; 84443; 84480; 84560; 85025; 85610; 85730; 86320; 87040; 87070; 87075; 87086; 93971; 96365; 96366; 96375; 96376; 99285-25

== ENCOUNTER 2018-01-03 16:48 | Inpatient (IN) | payer MEDICARE ==
[2018-01-03] MEDS: morphine 4 MG/ML VIAL IV ×2 (19:46→22:07)
[2018-01-03] MEDS: SOD CHLORIDE 0.9% 1,000 ML IV (19:46)
[2018-01-03] MEDS: ONDANSETRON 4 MG INJ IV ×2 (19:46→22:07)
[2018-01-03 20:02] LABS: WHITE BLOOD COUNT 16.5 10^3/ul (4.8-10.8)
[2018-01-03 20:02] LABS: ABNORMAL IP MESSAGE 1; HEMOGLOBIN 12.7 g/dl (12.0-16.0); MEAN CORPUSCULAR HEMOGLOBIN 24.1 pg (29.0-33.0); MEAN CORPUSCULAR VOLUME 77.8 fl (82.0-101.0); MEAN PLATELET VOLUME 9.2 fl (7.4-10.4); PLATELET COUNT 356 10^3/UL (140-415); RED BLOOD COUNT 5.27 10^6/ul (4.20-5.40); RED CELL DISTRIBUTION WIDTH 17.2 % (11.5-14.5)
[2018-01-03 20:09] LABS: ADD MAN DIFF? YES; POSITIVE DIFF @See below
[2018-01-03 20:11] LABS: ALANINE AMINOTRANSFERASE 35 IU/L (13-69); ALBUMIN 4.3 g/dl (3.3-4.9); ALBUMIN/GLOBULIN RATIO 0.82; ALKALINE PHOSPHATASE 248 IU/L (42-121); AMYLASE 51 U/L (11-123); ANION GAP 17 (8-16); ASPARTATE AMINO TRANSFERASE 29 IU/L (15-46); BILIRUBIN,INDIRECT 0.6 mg/dl (0-1.1); BILIRUBIN,TOTAL 0.6 mg/dl (0.2-1.3); BLOOD UREA NITROGEN 13 mg/dl (7-20); CALCIUM 9.5 mg/dl (8.4-10.2); CARBON DIOXIDE 27 mmol/L (21-31); CHLORIDE 100 mmol/L (97-110); CREATININE 0.82 mg/dl (0.44-1.00); GLUCOSE 123 mg/dl (70-220); INR 1.13; LIPASE 37 U/L (23-300); PARTIAL THROMBOPLASTIN TIME 36.5 Sec (25.0-35.0); PROTIME 14.7 Sec (11.9-14.9); PT RATIO 1.1; SODIUM 140 mmol/L (135-144); TOTAL PROTEIN 9.5 g/dl (6.1-8.1)
[2018-01-03 20:19] LABS: TROPONIN-I < 0.012 ng/ml (0.000-0.120)
[2018-01-03 21:08] LABS: BASOPHIL # 0.2 10^3/ul (0.0-0.1); EOSINOPHILS # 0.3 10^3/ul (0.0-0.5); EOSINOPHILS % (M) 2 % (0.0-7.0); LYMPHOCYTES # 2.8 10^3/ul (0.8-2.9); LYMPHOCYTES #M 2.8 10^3/ul (0.8-2.9); LYMPHOCYTES % (M) 17 % (15-51); MONOCYTE # 3.6 10^3/ul (0.3-0.9); MONOCYTE #M 3.6 10^3/ul (0.3-0.9); MONOCYTES % (M) 22 % (0-11); SEGMENTED NEUTROPHILS (M) % 58 % (39-77)
[2018-01-03 21:33] LABS: ADD UMIC YES; UR ASCORBIC ACID NEGATIVE (NEGATIVE); UR BACTERIA FEW /HPF (NONE SEEN); UR BILIRUBIN (Dip) NEGATIVE (NEGATIVE); UR BLOOD (Dip) 1+ mg/dL (NEGATIVE); UR CLARITY SLIGHTLY CLOUDY (CLEAR); UR COLOR YELLOW (YELLOW); UR GLUCOSE (Dip) NEGATIVE (NEGATIVE); UR KETONES (Dip) NEGATIVE (NEGATIVE); UR LEUKOCYTE ESTERASE (Dip) 2+ Leu/ul (NEGATIVE); UR NITRITE (Dip) POSITIVE (NEGATIVE); UR RBC 17 /HPF (0-5); UR SPECIFIC GRAVITY (Dip) 1.013 (1.003-1.030); UR SQUAMOUS EPITHELIAL CELL FEW /HPF (FEW); UR TOTAL PROTEIN (Dip) 1+ mg/dl (NEGATIVE); UR UROBILINOGEN (Dip) NEGATIVE (NEGATIVE); UR WBC 75 /HPF (0-5)
[2018-01-03] MEDS: CEFTRIAXONE 1 GM/50 ML (PMX) 50 ML IVPB (22:05)
[2018-01-03] MEDS: ACETAMINOPHEN 325 MG TAB PO (22:06)
[2018-01-03] MEDS: IBUPROFEN 800 MG TAB PO (22:06)
[2018-01-03] MEDS: SODIUM CHLORIDE 0.9% 1L BAG IV* (22:06)
[2018-01-03 22:20] LABS: LACTIC ACID 1.8 mmol/L (0.5-2.0)
[2018-01-03] MEDS: IOHEXOL 300MG/ML 150 ML BTL (22:27)
[2018-01-03] MEDS: SOD CHLORIDE 0.9% 100 ML (22:27)
[2018-01-03] MEDS: VANCOMYCIN 1 GM (PMX) 250 ML IVPB (22:51)
[2018-01-04] MEDS ORDERED: VANCOMYCIN IV PER PHARMACY XX (04:00)
[2018-01-04] MEDS ORDERED: ALBUTEROL/IPRATROPIUM (NEB) 3 ML AMP HHN (04:00)
[2018-01-04] MEDS ORDERED: NACL 0.9% 3 ML SYG IV (04:00)
[2018-01-04] MEDS ORDERED: ONDANSETRON 4 MG INJ IV (04:00)
[2018-01-04] MEDS: ACETAMINOPHEN 325 MG TAB PO (04:24)
[2018-01-04] MEDS: PIPER-TAZO 3.375 GM IV (PMX) 100 ML IVPB ×4 (04:25→22:51)
[2018-01-04] MEDS: DEXTROSE 5%-0.45% NACL 1,000 ML IV ×3 (04:26→22:41)
[2018-01-04] MEDS: SOD CHLORIDE 0.9% 1,000 ML IV (04:58)
[2018-01-04] MEDS: morphine 2 MG INJ IV ×4 (04:59→19:57)
[2018-01-04 07:35] LABS: ABNORMAL IP MESSAGE 1; HEMATOCRIT 32.3 % (37.0-47.0); HEMOGLOBIN 9.9 g/dl (12.0-16.0); MEAN CORPUSCULAR HEMOGLOBIN 24.3 pg (29.0-33.0); MEAN CORPUSCULAR HGB CONC 30.7 g/dl (32.0-37.0); MEAN CORPUSCULAR VOLUME 79.4 fl (82.0-101.0); MEAN PLATELET VOLUME 9.5 fl (7.4-10.4); PLATELET COUNT 240 10^3/UL (140-415); RED BLOOD COUNT 4.07 10^6/ul (4.20-5.40); RED CELL DISTRIBUTION WIDTH 17.4 % (11.5-14.5)
[2018-01-04] MEDS: HYDROmorphONE 0.5 MG/0.5 ML SYG IV (07:54)
[2018-01-04 08:01] LABS: POSITIVE DIFF @See below
[2018-01-04 08:02] LABS: ADD MAN DIFF? YES
[2018-01-04 08:17] LABS: ANION GAP 13 (8-16); BLOOD UREA NITROGEN 13 mg/dl (7-20); CALCIUM 8.4 mg/dl (8.4-10.2); CARBON DIOXIDE 25 mmol/L (21-31); CHLORIDE 106 mmol/L (97-110); GLUCOSE 110 mg/dl (70-220); MAGNESIUM 1.6 mg/dl (1.7-2.5); PHOSPHORUS 3.5 mg/dl (2.5-4.9); POTASSIUM 3.4 mmol/L (3.5-5.1); SODIUM 141 mmol/L (135-144)
[2018-01-04] MEDS: VANCOMYCIN 750 MG in DEXTROSE 5% 150 ML IVPB ×2 (08:59→17:11)
[2018-01-04] MEDS: FAMOTIDINE 20 MG INJ IV ×2 (09:10→21:07)
[2018-01-04] MEDS: LORAZEPAM 2 MG INJ IV ×2 (09:10→14:42)
[2018-01-04 09:53] LABS: ANISOCYTOSIS 2+ (0-0); BAND NEUTROPHILS #M 1.5 10^3/ul (0.0-0.6); BAND NEUTROPHILS % (M) 10 % (0-4); BASOPHIL #M 0.1 10^3/ul (0.0-0.0); BASOPHILS % (M) 1 % (0-2); EOSINOPHILS % (M) 2 % (0-7); GIANT THROMBO% (M) 1 % (0-0); LYMPHOCYTES #M 1.2 10^3/ul (0.8-2.9); LYMPHOCYTES % (M) 8 % (15-51); MICROCYTOSIS 2+ (0-0); MONOCYTE #M 2.5 10^3/ul (0.3-0.9); MONOCYTES % (M) 17 % (0-11); PLATELET ESTIMATE NORMAL; POLYCHROMASIA 3+ (0-0); REACTIVE LYMPHOCYTES #M 0.6 10^3/ul (0.0-0.0); REACTIVE LYMPHOCYTES% (M) 4 % (0-0); SEG NEUT #M 8.9 10^3/ul (1.6-7.5); SEGMENTED NEUTROPHILS (M) % 58 % (39-77)
[2018-01-04] MEDS ORDERED: VANCOMYCIN 750 MG in DEXTROSE 5% 150 ML IVPB (14:00)
[2018-01-04] MEDS: MAGNESIUM SULFATE 3 GM in DEXTROSE 5% 100 ML IVPB (14:32)
[2018-01-04] MEDS: POTASSIUM CHLORIDE 100 ML IVPB ×2 (15:23→17:37)
[2018-01-04] MEDS: ACETAMINOPHEN 650MG/20.3ML CUP PO (15:29)
[2018-01-04] MEDS: KETOROLAC 30 MG INJ IV ×2 (16:52→22:28)
[2018-01-05] MEDS: VANCOMYCIN 750 MG in DEXTROSE 5% 150 ML IVPB ×3 (01:03→17:48)
[2018-01-05 01:14] LABS: VANCOMYCIN,TROUGH 11.5 ug/ml (10.0-20.0)
[2018-01-05] MEDS: morphine 2 MG INJ IV ×5 (01:26→20:30)
[2018-01-05 05:16] LABS: ADD MAN DIFF? NO
[2018-01-05 05:47] LABS: WHITE BLOOD COUNT 12.5 10^3/ul (4.8-10.8)
[2018-01-05 05:47] LABS: ABNORMAL IP MESSAGE 1; BASOPHIL # 0.1 10^3/ul (0.0-0.1); BASOPHILS % 0.6 % (0.0-2.0); EOSINOPHILS # 0.6 10^3/ul (0.0-0.5); EOSINOPHILS % 4.6 % (0.0-7.0); HEMATOCRIT 32.4 % (37.0-47.0); HEMOGLOBIN 9.6 g/dl (12.0-16.0); LYMPHOCYTES # 1.8 10^3/ul (0.8-2.9); LYMPHOCYTES % 14.8 % (15.0-51.0); MEAN CORPUSCULAR HEMOGLOBIN 24.1 pg (29.0-33.0); MEAN CORPUSCULAR HGB CONC 29.6 g/dl (32.0-37.0); MEAN CORPUSCULAR VOLUME 81.2 fl (82.0-101.0); MEAN PLATELET VOLUME 9.3 fl (7.4-10.4); MONOCYTE # 2.4 10^3/ul (0.3-0.9); MONOCYTES % 19.5 % (0.0-11.0); NEUTROPHIL # 7.5 10^3/ul (1.6-7.5); NEUTROPHILS % 60.2 % (39.0-77.0); PLATELET COUNT 195 10^3/UL (140-415); RED BLOOD COUNT 3.99 10^6/ul (4.20-5.40); RED CELL DISTRIBUTION WIDTH 17.7 % (11.5-14.5)
[2018-01-05 06:04] LABS: ALANINE AMINOTRANSFERASE 17 IU/L (13-69); ALBUMIN 2.7 g/dl (3.3-4.9); ALBUMIN/GLOBULIN RATIO 0.75; ALKALINE PHOSPHATASE 145 IU/L (42-121); ANION GAP 15 (8-16); ASPARTATE AMINO TRANSFERASE 17 IU/L (15-46); BILIRUBIN,INDIRECT 0.5 mg/dl (0-1.1); BILIRUBIN,TOTAL 0.5 mg/dl (0.2-1.3); BLOOD UREA NITROGEN 13 mg/dl (7-20); CALCIUM 8.6 mg/dl (8.4-10.2); CARBON DIOXIDE 19 mmol/L (21-31); CHLORIDE 110 mmol/L (97-110); CREATININE 0.75 mg/dl (0.44-1.00); GLUCOSE 106 mg/dl (70-220); MAGNESIUM 2.6 mg/dl (1.7-2.5); POTASSIUM 4.3 mmol/L (3.5-5.1); SODIUM 140 mmol/L (135-144); TOTAL PROTEIN 6.3 g/dl (6.1-8.1)
[2018-01-05 06:06] LABS: POSITIVE DIFF @See below
[2018-01-05] MEDS: DEXTROSE 5%-0.45% NACL 1,000 ML IV ×3 (06:22→16:19)
[2018-01-05] MEDS: PIPER-TAZO 3.375 GM IV (PMX) 100 ML IVPB ×4 (07:44→22:15)
[2018-01-05] MEDS: FAMOTIDINE 20 MG INJ IV ×2 (09:41→20:24)
[2018-01-05] MEDS: KETOROLAC 30 MG INJ IV (09:41)
[2018-01-05 10:43] LABS: GAMMA GLUTAMYL TRANSPEPTIDASE 195 IU/L (0-50)
[2018-01-05] MEDS: LORAZEPAM 2 MG INJ IV (22:16)
[2018-01-06] MEDS: VANCOMYCIN 750 MG in DEXTROSE 5% 150 ML IVPB ×3 (00:30→16:55)
[2018-01-06] MEDS: morphine 2 MG INJ IV ×3 (00:31→08:34)
[2018-01-06] MEDS: PIPER-TAZO 3.375 GM IV (PMX) 100 ML IVPB ×4 (04:30→21:05)
[2018-01-06] MEDS: DEXTROSE 5%-0.45% NACL 1,000 ML IV (05:58)
[2018-01-06] MEDS: FAMOTIDINE 20 MG INJ IV (08:33)
[2018-01-06] MEDS: HYDROCODONE/APAP (5/325) TAB PO ×3 (12:33→21:06)
[2018-01-07] MEDS: VANCOMYCIN 750 MG in DEXTROSE 5% 150 ML IVPB ×2 (00:55→09:05)
[2018-01-07] MEDS: HYDROCODONE/APAP (5/325) TAB PO ×4 (01:07→13:34)
[2018-01-07] MEDS: PIPER-TAZO 3.375 GM IV (PMX) 100 ML IVPB ×2 (04:15→11:14)
[2018-01-07] MEDS: hydrALAzine 20 MG INJ IV ×2 (04:20→12:04)
[2018-01-07 05:49] LABS: ADD MAN DIFF? NO
[2018-01-07 05:54] LABS: BASOPHIL # 0.1 10^3/ul (0.0-0.1); EOSINOPHILS # 0.4 10^3/ul (0.0-0.5); EOSINOPHILS % 7.2 % (0.0-7.0); HEMATOCRIT 32.2 % (37.0-47.0); LYMPHOCYTES # 1.1 10^3/ul (0.8-2.9); LYMPHOCYTES % 19.3 % (15.0-51.0); MEAN CORPUSCULAR HEMOGLOBIN 24.4 pg (29.0-33.0); MEAN CORPUSCULAR HGB CONC 31.1 g/dl (32.0-37.0); MEAN CORPUSCULAR VOLUME 78.5 fl (82.0-101.0); MEAN PLATELET VOLUME 9.3 fl (7.4-10.4); MONOCYTE # 1.2 10^3/ul (0.3-0.9); MONOCYTES % 19.6 % (0.0-11.0); NEUTROPHIL # 3.1 10^3/ul (1.6-7.5); NEUTROPHILS % 52.2 % (39.0-77.0); PLATELET COUNT 279 10^3/UL (140-415); RED CELL DISTRIBUTION WIDTH 16.7 % (11.5-14.5)
[2018-01-07 05:54] LABS: WHITE BLOOD COUNT 5.9 10^3/ul (4.8-10.8)
[2018-01-07 06:11] LABS: IRON 26 ug/dl (35-150)
[2018-01-07 06:21] LABS: % IRON SATURATION 8 % SAT (22-52); TOTAL IRON BINDING CAPACITY 320 ug/dl (241-421)
[2018-01-07 06:27] LABS: ALANINE AMINOTRANSFERASE 24 IU/L (13-69); ALBUMIN 3.3 g/dl (3.3-4.9); ALBUMIN/GLOBULIN RATIO 0.82; ALKALINE PHOSPHATASE 227 IU/L (42-121); ANION GAP 12 (8-16); ASPARTATE AMINO TRANSFERASE 15 IU/L (15-46); BILIRUBIN,INDIRECT 0.3 mg/dl (0-1.1); BILIRUBIN,TOTAL 0.3 mg/dl (0.2-1.3); BLOOD UREA NITROGEN 8 mg/dl (7-20); CARBON DIOXIDE 28 mmol/L (21-31); CHLORIDE 107 mmol/L (97-110); CREATININE 0.73 mg/dl (0.44-1.00); GLUCOSE 100 mg/dl (70-220); POTASSIUM 4.3 mmol/L (3.5-5.1); SODIUM 143 mmol/L (135-144); TOTAL PROTEIN 7.3 g/dl (6.1-8.1)
[2018-01-07 06:43] LABS: HEPATITIS B SURFACE ANTIGEN NEGATIVE (NEGATIVE)
[2018-01-07 06:57] LABS: FERRITIN 96.1 ng/ml (11.1-264.0)
[2018-01-07 07:01] LABS: HEPATITIS B CORE ANTIBODY NEGATIVE (NEGATIVE); HEPATITIS C VIRAL ANTIBODY NEGATIVE (NEGATIVE)
[2018-01-07 12:35] LABS: HEPATITIS B SURFACE ANTIBODY POSITIVE (NEGATIVE)
== END 2018-01-07 13:55 | disposition home or self-care (01) | DRG 872 ==
LOC: MS3 23:10 → MS1 01-05 15:48 → ICU 01-04 08:53 → E/R 16:48
DX: A41.9 Sepsis, unspecified organism (principal); N39.0 Urinary tract infection, site not specified; K57.20 Diverticulitis of large intestine with perforation and abscess without bleeding; I10 Essential (primary) hypertension; Z90.712 Acquired absence of cervix with remaining uterus; Z90.79 Acquired absence of other genital organ(s); D64.9 Anemia, unspecified; R16.2 Hepatomegaly with splenomegaly, not elsewhere classified
CPT/HCPCS: 74177; 80048; 80053; 80202; 81001; 82150; 82728; 82977; 83540; 83605; 83690; 83735; 84100; 84484; 85025; 85610; 85730; 86704; 86706; 86709; 86803; 87040; 87081; 87086; 87340; 93005; 96374; 96375; 96376; 99285-25